=== PATIENT | female | born 1935 | race Caucasian/White ===

== ENCOUNTER 2023-08-22 13:14 | Emergency (ER) | payer MEDICARE, SELFPAY ==
--- NOTE | ~2023-08-22 | XR_ITS ---
EXAMINATION: XR ribs RT 2V INDICATION: Right chest pain after fall TECHNIQUE: 3 views of the right ribs were obtained. COMPARISON: None. FINDINGS: There is a minimally displaced posterior fracture of the right 10th rib. No definite additi onal fracture is identified although sensitivity is limited by osteopenia. The right lung is clear. T he heart size is normal. No pleural effusion or pneumothorax IMPRESSION: 1. Minimally displaced posterior fracture of the right 10th rib. Reviewed, dictated and finalized at location A.
--- NOTE | ~2023-08-22 | XR_ITS ---
EXAMINATION: XR thoracic spine 3V DATE: 08/22/2023 14:07 INDICATION: Back pain after fall TECHNIQUE: AP, lateral and lateral swimmer's views of the thoracic spine were obtained. COMPARISON: None. FINDINGS: No thoracic spine fracture is identified. There is severe loss of intervertebral disc space height at multiple levels in the thoracic spine as well as the cervical spine. The thoracic vertebra l body heights are maintained. Lumbar levoscoliosis is noted. There is a minimally displaced posterio r fracture of the right 10th rib. IMPRESSION: 1. Severe cervical and thoracic spondylosis without acute spine fracture identified. 2. Minimally displaced right posterior 10th rib fracture. Reviewed, dictated and finalized at location A. IMPRESSION: 1. Severe cervical and thoracic spondylosis without acute spine fracture identi fied. 2. Minimally displaced right posterior 10th rib fracture.
[2023-08-22 13:27] VITALS: BP 141/49; PULSE 80; RESP 18; TEMP 36.7; O2SAT 98
[2023-08-22 13:29] VITALS: BP 141/49; PULSE 80; RESP 18; TEMP 36.7; O2SAT 98
--- NOTE | 2023-08-22 13:49 | ED.BACK ---
HPI - Back Pain/Injury General Chief Complaint: Back Pain/Injury Stated Complaint: fell, pain in back Time Seen by Provider: 08/22/23 13:42 Source: patient, family, RN notes reviewed and old records reviewed Mode of arrival: ambulatory Limitations: no limitations History of Present Illness HPI Narrative: 88 year old female accompanied by daughter presents to express care with complaints of falling yesterday at her home in the kitchen. She states pain to the posterior right thoracic spine area and posterior rib region. Patient reports that it hurts when she takes a deep breath and area is tender to palpation and with changing positions.Patient reports that she took some Tylenol yesterday but has not taken any today.Patient denies any difficulty with urination or any problems having BM's, reports no saddle paraesthesia. MD elicited complaint: back pain, fall and other (right posterior rib painsi) Pertinent past history: other (fell in kitchen yesterday) Onset (ago): day(s) (fell yesterday) Quality: sharp and aching Location: thoracic spine (right posterior thoracic spine area) Treatments prior to arrival: acetaminophen Work related injury: No Related Data Home Medications Medication Instructions Recorded Confirmed donepezil 10 mg tablet mg 08/22/23 escitalopram oxalate 20 mg tablet mg 08/22/23 meloxicam 7.5 mg tablet mg 08/22/23 Allergies Allergy/AdvReac Type Severity Reaction Status Date / Time No Known Allergies Allergy Unverified 09/02/18 17:05 Review of Systems Review of Systems: CONSTITUTIONAL: Denies fever, chills, or sweats. CARDIOVASCULAR: Denies chest pain, palpitations, or edema. RESPIRATORY: Denies cough or dyspnea.reports increased pain to right thoracic back with deep breathing GASTROINTESTINAL: Denies abdominal pain, nausea, vomiting, or diarrhea. GENITOURINARY: Denies dysuria or hematuria. SKIN: Denies rash or itching. MUSCULOSKELETAL: Reports right thoracic back pain. or myalgia. NEUROLOGIC: Denies headache, numbness, or weakness, is forgetful. All systems reviewed & are unremarkable except as noted in HPI and below PMFSH Past Medical History Medical History (Updated 08/23/23 @ 08:14 by Randi Sandhu NP) Anxiety Dementia Osteoarthritis Osteopenia Subdural hematoma Surgical History Surgical History (Updated 08/23/23 @ 08:07 by Randi Sandhu NP) H/O: hysterectomy Hx of brain surgery related to subdural hematoma Social History Social History (Updated 08/23/23 @ 08:05 by Randi Sandhu NP) Smoking packs per day: 1 Smoking cigarettes per day: 20.0 Years smoked: 10 Smoking pack-years: 10.00 Smoking status: Former smoker Alcohol intake: former Alcohol use details: rare Substance use: never Additional living arrangements comments: lives with spouse Gender identity (if verbalized by the patient): Female Comments At time of signature, agree with nursing past medical, surgical, social and family history. There is no relevant family history pertinent to the presenting complaint Exam Narrative: GENERAL: frail-appearing, fair-nourished, and in no acute distress. HEAD: Normocephalic, atraumatic. EYES: PERRLA and EOMI. NECK: Supple. No lymphadenopathy. CHEST: Clear to auscultation. No respiratory distress. SAO2 98% on room air, pain with deep breathing HEART: Regular rate and rhythm. Distal pulses palpable and equal, cap refill <3 seconds ABDOMEN: Soft, nontender, nondistended, normal active bowel sounds, no palpable or pulsatile masses. No CVA tenderness MUSCULOSKELETAL: Normal range of motion and strength in all extremities; 5/5 strength with hip flexion and extension, dorsiflexion and extension, knee flexion and extension, plantar flexion and extension. Normal sensation in dermatomal distributions with sensitivity to light touch and pain. No midline back tenderness to palpation. No paraspinal tenderness. Transfers from lying to sitting to s
== END 2023-08-22 14:50 | disposition home or self-care (01) ==
PROVIDERS: Emergency Provider Registered Nurse; PCP Internal Medicine Infectious Disease
DX: S22.31XA Fracture of one rib, right side, initial encounter for closed fracture (principal); W19.XXXA Unspecified fall, initial encounter; M54.6 Pain in thoracic spine; F03.90 Unspecified dementia, unspecified severity, without behavioral disturbance, psychotic disturbance, mood disturbance, and anxiety; M19.90 Unspecified osteoarthritis, unspecified site; M85.80 Other specified disorders of bone density and structure, unspecified site; Z87.891 Personal history of nicotine dependence
CPT/HCPCS: 71100; 72072; 99214; G0463

== ENCOUNTER 2023-10-15 11:17 | Emergency (ER) | payer MEDICARE, SELFPAY ==
--- NOTE | ~2023-10-15 | XR_ITS ---
EXAMINATION: XR elbow RT min 3V DATE: 10/15/2023 11:47 INDICATION: Right elbow pain and swelling. Fall. TECHNIQUE: 4 views of right elbow were obtained. COMPARISON: None. FINDINGS: Bone alignment is normal. No fracture. There is mild elbow joint osteoarthritis. No elbow j oint effusion. There is soft tissue swelling overlying the olecranon. IMPRESSION: 1. Mild elbow joint osteoarthritis. Reviewed, dictated and finalized at location A.
--- NOTE | 2023-10-15 11:22 | ED.WOUNDLAC ---
HPI - Wound/Laceration General Chief Complaint: Wound/Laceration Stated Complaint: Right arm wound Time Seen by Provider: 10/15/23 11:31 Source: patient and RN notes reviewed Mode of arrival: ambulatory Limitations: no limitations History of Present Illness HPI narrative: 88-year-old female presents with concern for a wound on her right elbow. Reports 5 days ago she fell hitting her right arm on a concrete curb. Reports she had a large skin tear that was Steri-Stripped and wrapped in Coban. She reports the skin tear is still under Steri-Strips and is well-approximated however proximal to the skin tear she has redness, swelling, tenderness. Related Data Home Medications Medication Instructions Recorded Confirmed donepezil 10 mg tablet 10 mg PO DAILY 08/22/23 10/15/23 escitalopram oxalate 20 mg tablet 10 mg PO DAILY 08/22/23 10/15/23 meloxicam 7.5 mg tablet 7.5 mg PO DAILY 08/22/23 10/15/23 timolol maleate 0.5 % eye drops See Rx Instructions .Route .COMPLEX 10/15/23 10/15/23 Allergies Allergy/AdvReac Type Severity Reaction Status Date / Time No Known Allergies Allergy Unverified 10/15/23 11:20 Review of Systems Review of Systems: CONSTITUTIONAL: Denies malaise, chills, sweats, or fever. SKIN: Reports redness, swelling, tenderness to the right elbow MUSCULOSKELETAL: Denies muscle skeletal pain NEUROLOGIC: Denies numbness, weakness All systems reviewed & are unremarkable except as noted in HPI and below PMFSH Past Medical History Medical History (Updated 10/15/23 @ 11:44 by Lorna Watts NP) Anxiety Dementia Osteoarthritis Osteopenia Subdural hematoma Surgical History Surgical History (Updated 08/23/23 @ 08:07 by Randi Sandhu NP) H/O: hysterectomy Hx of brain surgery related to subdural hematoma Social History Social History (Updated 08/23/23 @ 08:05 by Randi Sandhu NP) Smoking packs per day: 1 Smoking cigarettes per day: 20.0 Years smoked: 10 Smoking pack-years: 10.00 Smoking status: Former smoker Alcohol intake: former Alcohol use details: rare Substance use: never Additional living arrangements comments: lives with spouse Gender identity (if verbalized by the patient): Female Comments At time of signature, agree with nursing past medical, surgical, social and family history. There is no relevant family history pertinent to the presenting complaint Exam Narrative: GENERAL: Well-appearing, well-nourished, and in no acute distress. HEAD: Normocephalic EYES: PERRLA, sclera clear ENT: Nares clear. Mucous membranes moist. NECK: Supple CHEST: No respiratory distress. Speaks in full sentences. HEART: Regular rate and rhythm. No murmur heard. Normal peripheral pulses. EXTREMITIES: Right upper extremity has gross Normal range of motion., grossly Normal strength and sensation. SKIN: Warm, dry. Steri-Strips wound noted to the right forearm, well-approximated, Steri-Strips intact. Erythema, edema, tenderness noted to the elbow proximal to the skin wound NEURO: Alert and oriented x3. No focal deficits. Cranial nerves II through XII grossly intact PSYCH: Normal mood and affect Course Course Emergency Course: Patient is aware of diagnosis, understands and agrees to treatment plan. Anticipatory guidance given. Patient agrees to follow-up as directed and is aware of reasons to seek care at the emergency department. Portions of this record may have been created with voice recognition software Level of Care: Express Care Visit Vital Signs Vital signs: Reviewed. MDM - Wound/Laceration MDM Narrative Medical decision making narrative: I evaluated this patient in the express care. History is obtained from patient who is an independent historian and physical exam was performed.? Available medical records were reviewed. ? Exam findings and relevant testing show no acute concerns or changes; patient is non-toxic appearing and is in no distress. ? Differenti
[2023-10-15 11:24] VITALS: BP 142/67; PULSE 104; RESP 14; TEMP 36.8; O2SAT 97
== END 2023-10-15 12:05 | disposition home or self-care (01) ==
PROVIDERS: Emergency Provider Nurse Practitioner; PCP Internal Medicine Infectious Disease
DX: L03.113 Cellulitis of right upper limb (principal); F17.210 Nicotine dependence, cigarettes, uncomplicated; F41.9 Anxiety disorder, unspecified; F03.90 Unspecified dementia, unspecified severity, without behavioral disturbance, psychotic disturbance, mood disturbance, and anxiety; M19.90 Unspecified osteoarthritis, unspecified site; M85.80 Other specified disorders of bone density and structure, unspecified site
CPT/HCPCS: 73080; 99213; G0463